=== PATIENT | male | born 1950 | race Hispanic/Latino ===

== ENCOUNTER 2020-11-30 15:13 | Inpatient (IN) | payer MEDICARE ==
[~2020-11-30] VITALS: Ht 170.2 cm; Wt 93.0 kg
[2020-11-30] MEDS ORDERED: AZITHROMYCIN 250 MG TABLET PO ONE (15:37)
[2020-11-30] MEDS ORDERED: CEFTRIAXONE SODIUM 1 GM ONE (15:37)
[2020-11-30] MEDS ORDERED: ALBUTEROL INHALER 90MCG/INH IH ONE (15:37)
[2020-11-30] MEDS ORDERED: ACETAMINOPHEN-CODEINE 300/30MG TAB ONE (15:38)
[2020-11-30 15:42] LABS: ABG BASE EXCESS 2.1 mmol/L (-2.0-3.0); ABG HCO3 25.7 mmol/L (21.0-28.0); ABG OXYGEN SATURATION 92.3 % (95.0-99.0); ABG PCO2 37 mmHg (35-48)
[2020-11-30 15:46] LABS: BASOPHILS % (AUTO) 0.2 % (0.0-5.0); HEMATOCRIT 43.9 % (42-54); LYMPHOCYTES % (AUTO) 20.4 % (21.0-51.0); MEAN CORPUSCULAR HEMOGLOBIN 31.1 pg (27.0-33.0); MEAN CORPUSCULAR HGB CONC 34.4 g/dL (32.0-36.0); MEAN CORPUSCULAR VOLUME 90.5 fL (79-99); MONOCYTES % (AUTO) 6.6 % (3.0-13.0); NEUTROPHILS % (AUTO) 72.5 % (40.0-77.0); PLATELET COUNT (AUTO) 143 K/uL (130-400); RED BLOOD CELL COUNT(AUTO) 4.85 MIL/uL (4.50-6.20); RED CELL DISTRIBUTION WIDTH 12.3 % (11.0-15.5); WHITE BLOOD COUNT (AUTO) 5.9 K/uL (4.8-10.8)
[2020-11-30 15:58] LABS: INR 1.05 (0.85-1.15); PROTHROMBIN TIME 11.4 SEC (9.6-11.6)
[2020-11-30 15:59] LABS: CREATININE 1.2 mg/dL (0.5-1.5); PARTIAL THROMBOPLASTIN TIME 32.2 SEC (26.3-35.5); POTASSIUM 3.7 mmol/L (3.5-5.1)
[2020-11-30 16:04] LABS: ALBUMIN 3.4 g/dL (3.5-5.0); TOTAL PROTEIN, SERUM 7.6 g/dL (6.0-8.3)
[2020-11-30] MEDS ORDERED: ONDANSETRON HCL 4 MG/2 ML VIAL IV PRN (18:00)
[2020-11-30] MEDS ORDERED: GUAIFENESIN-DM 200/20 MG 10 ML PO PRN (18:00)
[2020-11-30] MEDS ORDERED: DIPHENHYDRAMINE HCL 25 MG CAPSULE PO PRN (18:00)
[2020-11-30] MEDS ORDERED: LACTULOSE 20 GM/30 ML UDCUP PO PRN (18:00)
[2020-11-30] MEDS ORDERED: MAG HYDROX/AL HYDROX/SIMETH ES 30 ML SUSP UDCUP PO PRN (18:00)
[2020-11-30] MEDS ORDERED: ACETAMINOPHEN 325 MG TAB PO PRN ×2 (18:00)
[2020-11-30] MEDS ORDERED: NITROGLYCERIN 0.4 MG SL TAB SL PRN (18:00)
[2020-11-30] MEDS ORDERED: DiphenhydrAMINE HCL 50 MG/ML VIAL IV PRN (18:00)
[2020-11-30] MEDS ORDERED: DEXAMETHASONE SOD PHOSPHATE 4 MG/ML 1ML VIAL ONE (18:05)
[2020-11-30] MEDS ORDERED: DOXYCYCLINE HYCLATE 100 MG TABLET PO ONE (18:05)
[2020-11-30] MEDS ORDERED: ERGOCALCIFEROL (VITAMIN D2) 50,000 UNIT CAPSULE ONE (18:05)
[2020-11-30] MEDS ORDERED: ERGOCALCIFEROL (VITAMIN D2) 50,000 UNIT CAPSULE PO ONE (19:00)
[2020-11-30] MEDS: DEXAMETHASONE SOD PHOSPHATE 4 MG/ML 1ML VIAL IVP SCH (23:39)
[2020-11-30] MEDS: DOXYCYCLINE HYCLATE 100 MG TABLET PO SCH (23:40)
[2020-11-30] MEDS: CEFTRIAXONE SODIUM 1 GM IVP SCH (23:40)
[2020-11-30 23:45] VITALS: BP 140/74
[2020-12-01] VITALS: BP 140/74
[2020-12-01] MEDS ORDERED: NIFE-40 PO (01:10)
[2020-12-01 04:20] VITALS: BP 130/69
[2020-12-01 04:52] LABS: BASOPHILS % (AUTO) 0.3 % (0.0-5.0); MEAN CORPUSCULAR HEMOGLOBIN 31.7 pg (27.0-33.0); MEAN CORPUSCULAR HGB CONC 35.2 g/dL (32.0-36.0); MONOCYTES % (AUTO) 3.1 % (3.0-13.0); PLATELET COUNT (AUTO) 128 K/uL (130-400); RED BLOOD CELL COUNT(AUTO) 4.89 MIL/uL (4.50-6.20); RED CELL DISTRIBUTION WIDTH 12.1 % (11.0-15.5); WHITE BLOOD COUNT (AUTO) 3.2 K/uL (4.8-10.8)
[2020-12-01 05:20] LABS: ALBUMIN 3.1 g/dL (3.5-5.0); BILIRUBIN,TOTAL 0.7 mg/dL (0.2-1.0); CREATININE 1.1 mg/dL (0.5-1.5); CRP QUANTITATIVE 123.1 mg/L (0.00-9.0); POTASSIUM 4.2 mmol/L (3.5-5.1); TOTAL PROTEIN, SERUM 7.5 g/dL (6.0-8.3)
[2020-12-01] MEDS: CEFTRIAXONE SODIUM 1 GM IVP SCH ×2 (05:57→18:05)
[2020-12-01 08:30] VITALS: BP 132/74
[2020-12-01] MEDS: DOXYCYCLINE HYCLATE 100 MG TABLET PO SCH (08:36)
[2020-12-01] MEDS ORDERED: ENOXAPARIN SODIUM 40 MG/0.4 ML SYRINGE SQ SCH (09:00)
[2020-12-01 12:49] VITALS: BP 124/68
[2020-12-01 16:36] VITALS: BP 132/74
[2020-12-01] MEDS ORDERED: APIX2.5T PO (16:39)
[2020-12-01] MEDS ORDERED: DOXY100T2 PO (16:39)
[2020-12-01] MEDS ORDERED: DEXA6TAB PO (16:39)
[2020-12-01] MEDS: DEXAMETHASONE SOD PHOSPHATE 4 MG/ML 1ML VIAL IVP SCH (18:05)
[2020-12-01] MEDS ORDERED: APIXABAN 2.5 MG TABLET PO SCH (21:00)
== END 2020-12-01 18:46 | disposition home or self-care (01) | DRG 177 ==
LOC: EDH 15:13 → EDHIP 17:48 → 2AH 23:44
PROVIDERS: ADMIT Family Medicine; ATTEND Family Medicine
DX: U07.1 COVID-19 (principal); J12.82 Pneumonia due to coronavirus disease 2019; J96.01 Acute respiratory failure with hypoxia; I10 Essential (primary) hypertension
CPT/HCPCS: 36415; 36600; 71045; 71250; 80053; 82550; 82728; 82803; 83605; 83615; 84145; 84484; 85025; 85378; 85610; 85730; 86140; 87040; 87426; 87804; 87880; 93005; 94760; G0378; J0696; J1100; J1650